=== PATIENT | male | born 1965 | race Caucasian/White ===

== ENCOUNTER 2016-11-20 14:28 | Emergency (ER) | payer OTHER ==
[~2016-11-20] VITALS: Ht 180.3 cm; Wt 99.8 kg
[2016-11-20 14:35] VITALS: BP 145/90
--- NOTE | 2016-11-20 16:18 | ED ANIMAL BITE/WOUND CHECK ---
History of Present Illness General Chief Complaint: Animal/Insect Bite Stated Complaint: CAT BITE Source: patient Exam Limitations: no limitations Vital Signs & Intake/Output Vital Signs & Intake/Output Vital Signs Date Time Temp Pulse Resp B/P Pulse O2 O2 Flow FiO2 Ox Delivery Rate 11/20 1435 97.7 80 18 145/90 97 Room Air Room Air ED Intake and Output 11/21 0000 11/20 1200 Intake Total Output Total Balance Patient 220 lb Weight Allergies Coded Allergies: No Known Allergies (11/20/16) Triage Note: TRIAGE: 51 Y/O FEMALE PRESENTS C/O CAT BITE TO RIGHT THIRD DIGIT. 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 CAT UP TO DATE WITH VACCINATIONS. NO ACTIVE BLEEDING TO AREA. LAST TETANUS UNKNOWN. Triage Nurses Notes Reviewed? yes Onset: Gradual Duration: better Timing: recent history Injury Environment: home Is Injury an Animal Bite? Yes Animal Type: cat Context of Animal Attack: playing with animal Appearance of Animal: appeared well Severity of Attack: bitten Severity: mild HPI: Patient is a 51-year-old male who states that 2 days ago patient was playing with his cat and which immunizations are up-to-date and with the cat had bitten patient to the right distal aspect of his third digit middle finger. Laceration did occur in which it is well-healing and patient was requesting wound evaluation and antibiotics. Patient has unknown tetanus status. Denies any fever chills swelling redness (JUAN MUNIZ) Reconcile Medications Amoxicillin/Potassium Clav (Augmentin 875-125 Tablet) 875 MG-125 MG TABLET 1 TAB PO BID CAT BITE (KRYSTEN GONZALEZ,ONEL) Past History Travel History Traveled to [place] past 21 day No Medical History Any Pertinent Medical History? 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 No (JUAN MUNIZ) Review of Systems Review of Systems Constitutional: Reports: no symptoms. EENTM: Reports: no symptoms. Respiratory: Reports: no symptoms. Cardiovascular: Reports: no symptoms. GI: Reports: no symptoms. Genitourinary: Reports: no symptoms. Musculoskeletal: Reports: see HPI. Skin: Reports: see HPI, change in skin color. Neurological/Psychological: Reports: no symptoms. Hematologic/Endocrine: Reports: no symptoms. Immunologic/Allergic: Reports: no symptoms. All Other Systems: Reviewed and Negative (JUAN MUNIZ) Physical Exam Physical Exam General Appearance: no apparent distress, alert, comfortable Comments: Well-developed well-nourished no apparent distress. HEENT: Atraumatic, extraocular motion intact Neck: Supple, no lymphadenopathy Back: Nontender Respiratory: No respiratory distress Neuro: Alert and oriented x3 Psych: Mood affect normal, normal memory normal judgment. Diagram Hands, Palmar: 1) Well-healing superficial non-gaping 5 mm laceration with mild surrounding ecchymosis no swelling no erythema no warmth full active range of motion noted with flexion and extension (JUAN MUNIZ) Progress Differential Diagnosis: abscess, cellulitis, joint infection, tenosysnovitis Plan of Care: At this time on physical examination there is no concerns of infection however patient was prescribed Augmentin for prophylactic prevention. Patient was strongly advised to return to emergency room if symptoms worsen his tetanus was updated (JUAN MUNIZ) Plan of Care: At this time on physical examination there is no concerns of infection however patient was prescribed Augmentin for prophylactic prevention. Patient was strongly advised to return to emergency room if symptoms worsen his tetanus was updated Departure Departure Disposition: HOME OR SELF CARE Condition: Stable Clinical Impression Primary Impression: Cat bite of middle finger Referrals: PATIENT HAS NO PRIMARY CARE DR (PCP/Family) Additional Instructions: DISCUSSED BEGIN THE PRESCRIPTION OF AUGMENTIN DIRECTED FOR THE FULL COURSE Begin to apply Neosporin to the area once a day for the following 3 days. If you note signs of infection redness, pain, swelling, discharge return to the emergency room immediately. Follow-up with your primary care doctor in 5 days for recheck of symptoms Prescriptions are waiting at [facility] pharmacy. Departure Forms: Customer Survey General Discharge Information (JUAN MUNIZ) Departure Prescriptions: Current Visit Scripts Amoxicillin/Potassium Clav (Augmentin 875-125 Tablet) 1 TAB PO BID #14 TAB PA/BELT BUILDER HELPER Co-Sign Statement Statement: ED Attending supervision documentation- [] I saw and evaluated the patient. I have also reviewed all the pertinent lab results and diagnostic results. I agree with the findings and the plan of care as documented in the PA's/BELT BUILDER HELPER's documentation. [X] I have reviewed the ED Record and agree with the PA's/BELT BUILDER HELPER's documentation. [] Additions or exceptions (if any) to the PAs/BELT BUILDER HELPER's note and plan are summarized below: [] (KRYSTEN GONZALEZ,ONEL)
[2016-11-20] MEDS ORDERED: AUGMENTIN 875-1 EACH PO (16:39)
== END 2016-11-20 16:49 ==
LOC: ERH 14:28
DX: S61.252A Open bite of right middle finger without damage to nail, initial encounter (principal); W55.01XA Bitten by cat, initial encounter; Y92.9 Unspecified place or not applicable; Y93.9 Activity, unspecified
CPT/HCPCS: 90471